=== PATIENT | female | born 1985 | race Caucasian/White ===

== ENCOUNTER 2018-03-24 01:27 | Emergency (ER) | payer BC ==
--- NOTE | 2018-03-24 01:31 | ER Report ---
History and Physical Time Seen By MD: 01:30 HPI/ROS CHIEF COMPLAINT: Chest tightness, back pain HISTORY OF PRESENT ILLNESS: 32-year-old female resents ambulatory to the ER after retrying to bed in her usual state of health. Patient relates an extensive history of evaluation since July of last year when she had a syncopal episode. She underwent extensive neurologic evaluation including MRI and a head CT, which were unremarkable. Patient was also referred to cardiology for an extensive evaluation. It sounds if she wore a Holter monitor. Patient for the last 8 months been having frequent headaches and GI upset as well as frequent diarrhea. Her GI underwent endoscopy. Her doctors wanted her to take Prilosec for 3 months. After 3 days. She was having adverse side effects and had to stop taking it. Patient describes being very sensitive to medication. Patient now notes awakening in the middle the night with severe tightness between her shoulder blades and muscle spasm in her back. Radiating to both of her arms and her chest. She notes no shortness of breath or diaphoresis. He now has residual back pain in the upper back region. She notes no fever or chills. She's had no URI cough sore throat or fever. She denies dysuria. Her last menstrual period started today. REVIEW OF SYSTEMS: Respiratory: No cough, no dyspnea. Cardiovascular: As above Gastrointestinal: No vomiting, no abdominal pain. Musculoskeletal: No back pain. Allergies: Coded Allergies: lamotrigine (Verified Allergy, Intermediate, ITCHING, 03/24/18) Home Meds Active Scripts Methocarbamol (ROBAXIN) 500 Mg Tablet, 1-3 TAB PO TID Y for muscle spasm relief , #20 Prov:NATALY MASTERS DO 03/24/18 Reported Medications Acyclovir (ACYCLOVIR) 400 Mg Tablet, 400 MG PO BID, TAB 03/24/18 Reviewed Nurses Notes: Yes Old Medical Records Reviewed: Yes Constitutional Vital Sign - Last 24 Hours 03/24/18 03/24/18 03/24/18 03/24/18 01:33 01:57 02:12 02:27 Temp 98.7 Pulse 72 57 53 61 Resp 16 16 20 13 B/P (MAP) 129/88 Pulse Ox 91 93 93 O2 Delivery Room Air 03/24/18 03/24/18 03/24/18 03/24/18 02:30 02:35 02:50 03:00 Pulse 55 55 Resp 16 14 B/P (MAP) 93/68 (76) 106/72 (83) Pulse Ox 94 92 03/24/18 03/24/18 03/24/18 03/24/18 03:05 03:25 03:30 03:40 Pulse 59 55 58 Resp 15 7 B/P (MAP) 95/72 (80) Pulse Ox 96 93 03/24/18 03/24/18 03:45 04:00 Pulse 56 54 Resp 0 19 B/P (MAP) 100/66 (77) Pulse Ox 94 92 Physical Exam General Appearance: The patient is alert, has no immediate need for airway protection and no current signs of toxicity. Mild distress HEENT: Pupils equal and round no injection. Oropharynx without redness or exudate, mucous. Membranes are moist Respiratory: Chest is non tender, lungs are clear to auscultation. No chest wall tenderness Cardiac: regular rate and rhythm Gastrointestinal: Abdomen is soft and non tender, no masses, bowel sounds normal. Musculoskeletal: Neck: Neck is supple and non tender. Palpation of the thoracic spine reveals some tenderness in the upper paraspinous muscles in the thoracic region Extremities have full range of motion and are non tender. No edema, no calf tenderness Skin: No rashes or lesions. DIFFERENTIAL DIAGNOSIS: After history and physical exam differential diagnosis was considered for chest pain including but not limited to myocardial ischemia, pericarditis pulmonary embolus, chest wall pain, pleural inflammation and pulmonary infectious causes. Additionallyback pain including but not limited to muscular pain, herniated disc, spine fracture, intra-abdominal causes and urinary tract infection. Medical Decision Making Data Points Result Diagram: 03/24/18 0138 03/24/18 0138 Laboratory Hematology Test 03/24/18 01:38 Red Blood Count 4.80 M/uL (4.17-5.56) Mean Corpuscular Volume 89.9 fL (80.0-96.0) Mean Corpuscular Hemoglobin 31.0 pg (26.0-33.0) Mean Corpuscular Hemoglobin Concent 34.5 g/dL (32.0-36.0) Red Cell Distribution Width 12.5 % (11.5-14.5) Mean Platelet Volume 9.9 fL (7.2-11.1) Neutrophils (%) (Auto) 57.0 % (39.4-72.5) Lymphocytes (%) (Auto) 33.9 % (17.6-49.6) Monocytes (%) (Auto) 5.9 % (4.1-12.4) Eosinophils (%) (Auto) 2.6 % (0.4-6.7) Basophils (%) (Auto) 0.6 % (0.3-1.4) Nucleated RBC Relative Count (auto) 0.0 /100WBC Neutrophils # (Auto) 5.7 K/uL (2.0-7.4) Lymphocytes # (Auto) 3.4 K/uL (1.3-3.6) Monocytes # (Auto) 0.6 K/uL (0.3-1.0) Eosinophils # (Auto) 0.3 K/uL (0.0-0.5) Basophils # (Auto) 0.1 K/uL (0.0-0.1) Nucleated RBC Absolute Count (auto) 0.00 K/uL Prothrombin Time 13.1 seconds (12.0-14.4) Prothromb Time International Ratio 0.99 Activated Partial Thromboplast Time 29 seconds (23-35) D-Dimer Quantitative (PE/DVT) < 0.27 ug/ml (0-0.50) Sodium Level 137 mmol/L (137-145) Potassium Level 3.9 mmol/L (3.5-5.0) Chloride Level 102 mmol/L (98-107) Carbon Dioxide Level 25 mmol/L (22-31) Blood Urea Nitrogen 21 mg/dl (7-18) Creatinine 0.90 mg/dl (0.52-1.04) Glomerular Filtration Rate Calc > 60.0 Random Glucose 98 mg/dl (75-110) Calcium Level 9.0 mg/dl (8.4-10.2) Total Bilirubin 0.6 mg/dl (0.2-1.3) Aspartate Amino Transf (AST/SGOT) 16 U/L (0-35) Alanine Aminotransferase (ALT/SGPT) 14 U/L (0-56) Alkaline Phosphatase 61 U/L (0-126) Troponin I < 0.012 ng/ml B-Type Natriuretic Peptide < 5 pg/ml (0-100) Total Protein 7.3 g/dl (6.3-8.2) Albumin 4.4 g/dl (3.5-5.0) Amylase Level 61 U/L (0-110) Lipase 67 U/L (23-300) Human Chorionic Gonadotropin, Qual Negative (NEGATIVE) Chemistry Test 03/24/18 01:38 White Blood Count 10.0 k/uL (4.5-11.0) Red Blood Count 4.80 M/uL (4.17-5.56) Hemoglobin 14.9 g/dL (12.0-16.0) Hematocrit 43.2 % (34.0-47.0) Mean Corpuscular Volume 89.9 fL (80.0-96.0) Mean Corpuscular Hemoglobin 31.0 pg (26.0-33.0) Mean Corpuscular Hemoglobin Concent 34.5 g/dL (32.0-36.0) Red Cell Distribution Width 12.5 % (11.5-14.5) Platelet Count 175 K/uL (150-450) Mean Platelet Volume 9.9 fL (7.2-11.1) Neutrophils (%) (Auto) 57.0 % (39.4-72.5) Lymphocytes (%) (Auto) 33.9 % (17.6-49.6) Monocytes (%) (Auto) 5.9 % (4.1-12.4) Eosinophils (%) (Auto) 2.6 % (0.4-6.7) Basophils (%) (Auto) 0.6 % (0.3-1.4) Nucleated RBC Relative Count (auto) 0.0 /100WBC Neutrophils # (Auto) 5.7 K/uL (2.0-7.4) Lymphocytes # (Auto) 3.4 K/uL (1.3-3.6) Monocytes # (Auto) 0.6 K/uL (0.3-1.0) Eosinophils # (Auto) 0.3 K/uL (0.0-0.5) Basophils # (Auto) 0.1 K/uL (0.0-0.1) Nucleated RBC Absolute Count (auto) 0.00 K/uL Prothrombin Time 13.1 seconds (12.0-14.4) Prothromb Time International Ratio 0.99 Activated Partial Thromboplast Time 29 seconds (23-35) D-Dimer Quantitative (PE/DVT) < 0.27 ug/ml (0-0.50) Glomerular Filtration Rate Calc > 60.0 Calcium Level 9.0 mg/dl (8.4-10.2) Total Bilirubin 0.6 mg/dl (0.2-1.3) Aspartate Amino Transf (AST/SGOT) 16 U/L (0-35) Alanine Aminotransferase (ALT/SGPT) 14 U/L (0-56) Alkaline Phosphatase 61 U/L (0-126) Troponin I < 0.012 ng/ml B-Type Natriuretic Peptide < 5 pg/ml (0-100) Total Protein 7.3 g/dl (6.3-8.2) Albumin 4.4 g/dl (3.5-5.0) Amylase Level 61 U/L (0-110) Lipase 67 U/L (23-300) Human Chorionic Gonadotropin, Qual Negative (NEGATIVE) Coagulation Test 03/24/18 01:38 Prothrombin Time 13.1 seconds Prothromb Time International Ratio 0.99 Activated Partial Thromboplast Time 29 seconds D-Dimer Quantitative (PE/DVT) < 0.27 ug/ml EKG/Imaging EKG Interpretation 12 lead EK Rhythm: Sinus bradycardia, 55 bpm [place]: normal QRS: Inferior Q waves of questionable significance ST segments: normal, no old EKGs for comparison Imaging X-ray: Two-view chest x-ray was obtained. I viewed the images myself on the PACS system. My interpretation of the images is: No infiltrate, no effusion, normal mediastinum. The radiologist interpretation had no clinically significant variation from this interpretation. ED Course/Re-evaluation Clinical Indication for ER IV: IV Access ED Course She was admitted to an examination room. H&P was done. The differential diagnoses was considered. Patient awoke with severe back and chest pain. She describes acute muscle spasm. She notes aggravation of her symptoms with movement of her upper neck and back. Diagnostic evaluation was undertaken. Findings are negative for pulmonary embolism. EKG is unremarkable. Troponin is negative. BNP was negative. was negative. Other diagnostic studies were unremarkable. Her chest x-ray was normal. Patient was medicated for pain with Tylenol and Toradol and Robaxin for muscle spasm relief. She is discharged home with prescription of Robaxin. She is advised to follow-up with primary care if unimproved in 3-5 days. Decision to Disposition Date: Mar 24, 2018 Decision to Disposition Time: 03:05 Depart Departure Latest Vital Signs Vital Signs Date Time Temp Pulse Resp B/P (MAP) Pulse Ox O2 Delivery O2 Flow Rate FiO2 03/24/18 04:00 54 19 100/66 (77) 92 03/24/18 01:33 98.7 Room Air Impression: Primary Impression: Chest tightness Additional Impressions: Spasm of thoracic back muscle Epigastric pain Headache Condition: Improved Disposition: HOME OR SELF-CARE Referrals: JONO MENDOZA MD New Scripts Methocarbamol (ROBAXIN) 500 Mg Tablet 1-3 TAB PO TID Y for muscle spasm relief, #20 Prov: NATALY MASTERS DO 03/24/18 Patient Instructions: Chest Pain (ED), Thoracic Back Strain (ED) Additional Instructions: Take ibuprofen 200 mg 3 tablets 3 times a day with food Apply heating pad to your back Take Robaxin muscle relaxant as needed for spasm relief Follow-up with primary care Dr Mendoza if unimproved in 3-5 days. Problem Qualifiers Additional Impressions: Headache Headache type: unspecified Headache chronicity pattern: acute headache Intractability: not intractable Qualified Codes: R51 - Headache NATALY MASTERS DO Mar 24, 2018 01:31
[2018-03-24] MEDS ORDERED: ACYC-50 PO (01:37)
--- NOTE | 2018-03-24 01:59 | EKG ---
FACILITY: [facility] PATIENT NAME: IESHA IRBY : [id number] MR: [id number] V: [id number] EXAM DATE: ORDERING PHYSICIAN: NATALY MASTERS TECHNOLOGIST: Test Reason : Blood Pressure : / mmHG Vent. Rate : 055 BPM Atrial Rate : 055 BPM P-R Int : 140 ms QRS Dur : 088 ms QT Int : 452 ms P-R-T Axes : -22 -25 -05 degrees QTc Int : 432 ms Sinus bradycardia [place] ECG No previous ECGs available Confirmed by KAITLIN GRIFFIN ([id number]) on 03/24/2018 5:49:34 AM Referred By: Confirmed By:KAITLIN GRIFFIN
[2018-03-24 02:09] LABS: PLATELET COUNT, AUTOMATED 175 K/uL (150-450)
[2018-03-24 02:16] LABS: INR 0.99
--- NOTE | 2018-03-24 02:21 | RADIOLOGY IMAGING REPORT ---
FACILITY: [facility] PATIENT NAME: Sylwia Santana : 1985 MR: [id number] V: [id number] EXAM DATE: ORDERING PHYSICIAN: NATALY MASTERS TECHNOLOGIST: Location: [facility] [place] Patient: Sylwia Santana : 1985 Visit/Account:[id number] Date of Sevice: 03/24/2018 CHEST PA AND LAT HISTORY: Chest pain. Tightness in neck and shoulders. COMPARISON: None. TECHNIQUE: PA and lateral views of the chest. FINDINGS: Pulmonary: There is hyperinflation, which may be due to the depth of inspiration. Lungs are clear. Th ere is no pneumothorax or pleural effusion. Cardiomediastinal: Cardiac and mediastinal silhouettes are within normal limits. Bones/soft tissues: No acute osseous abnormality. The visible abdomen is normal. IMPRESSION: 1. No acute cardiopulmonary process. Report Dictated By: Sylwia Vargas at 03/24/2018 2:17 AM Report E-Signed By: Sylwia Vargas at 03/24/2018 2:18 AM [id number]
[2018-03-24] MEDS ORDERED: ACETAMINOPHEN 325 MG TAB PO ONE (02:50)
[2018-03-24] MEDS ORDERED: METHOCARBAMOL 500 MG TAB PO ONE ×2 (02:50→03:40)
[2018-03-24] MEDS ORDERED: KETOROLAC 15 MG/ML VIAL IVP ONE (03:00)
[2018-03-24] MEDS ORDERED: METH-542 PO (03:08)
[2018-03-24 04:00] VITALS: BP 100/66
--- NOTE | 2018-03-25 09:00 | EKG ---
FACILITY: [facility] PATIENT NAME: IESHA IRBY : [id number] MR: [id number] V: [id number] EXAM DATE: ORDERING PHYSICIAN: NATALY MASTERS TECHNOLOGIST: Test Reason : Blood Pressure : / mmHG Vent. Rate : 054 BPM Atrial Rate : 054 BPM P-R Int : 152 ms QRS Dur : 072 ms QT Int : 456 ms P-R-T Axes : -27 -20 -02 degrees QTc Int : 432 ms Sinus bradycardia Septal infarct , age undetermined Inferior infarct , age undetermined Abnormal ECG No previous ECGs available Confirmed by RANDA WYATT ([id number]) on 03/25/2018 9:47:47 AM Referred By: Confirmed By:RANDA WYATT
== END 2018-03-24 04:16 | disposition home or self-care (01) ==
LOC: ER 01:35
DX: R07.89 Other chest pain (principal); M62.830 Muscle spasm of back; R10.13 Epigastric pain; R51 Headache; R00.1 Bradycardia, unspecified
CPT/HCPCS: 71046; 82150; 83690; 83880; 84484; 84703; 85025; 85379; 85610; 85730; 93005; 96374; 99283; J1885; 82040; 82247; 82310; 82374; 82435; 82565; 82947; 84075; 84132; 84155; 84295; 84450; 84460; 84520